=== PATIENT | female | born 1965 | race Caucasian/White ===

== ENCOUNTER 2018-03-08 13:08 | Day surgery (SDC) | payer BC ==
[~2018-03-08] VITALS: Ht 165.1 cm; Wt 84.2 kg
[~2018-03-08 13:08] MED LIST: NITR-58 PO
[2018-03-08 14:15] VITALS: Ht 165.1 cm; Wt 84.2 kg
[2018-03-08 14:30] VITALS: BP 114/66; PULSE 64; RESP 18
--- NOTE | 2018-03-08 15:11 | PREAC ---
Date/Time of Note Date/Time of Note DATE: 03/08/18 TIME: 15:09 Anesthesia Eval and Record Evaluation Time Pre-Procedure Interview DATE: 03/08/18 TIME: 15:09 Age 52 Sex female NPO: 8 hrs Preoperative diagnosis dysphagia / constipation Planned procedure EGD / Colonoscopy- Past Medical History Past Medical History: Includes Pulm: Asthma GI: Obesity Surgery & Anesthesia Issues No known issue Meds Anticoagulation: No Beta Maico within 24 hr: No Reason Beta Maico not given: Pt. not on B-Maico Active Scripts Nitrofurantoin Monohyd Macrocr* (Macrobid*) 100 Mg Capsr, 100 MG PO BID for 5 Days, CAP Prov:JABIER HITCHCOCK [employer]IST [employer] 09/14/15 Reported Medications [None] No Conflict Check 09/11/15 Meds reviewed: Yes Allergies Coded Allergies: No Known Allergy (Unverified , 09/11/15) Allergies Reviewed: Yes Labs/Studies Labs Reviewed: Reviewed by anesthesiologist test: N/A Pre-procedure Exam Last vitals Vital Signs Date Temp Pulse Resp B/P (MAP) Pulse Ox O2 O2 Flow FiO2 Time Delivery Rate 03/08/18 98.1 64 18 114/66 Room Air 14:30 (82) Airway: Adequate mouth opening Mallampati: Mallampati II Teeth: Normal Lung: Normal Heart: Normal ASA Physical Status ASA physical status: 3 Emergency: None Planned Anesthetic General/MAC: MAC Pre-operative Attestations Prior to commencing anesthesia and surgery, the patient was re-evaluated, there was verification of: *The patient's identity *The results of appropriate recent lab work and preoperative vital signs *The above evaluation not changing prior to induction *Anesthetic plan, risk benefits, alternative and complications discussed with patient/family; questions answered; patient/family understands, accepts and wishes to proceed. NATY PALACIOS Mar 08, 2018 15:11
[2018-03-08] MEDS ORDERED: ONDANSETRON 4 MG INJ IV PRN (15:30)
[2018-03-08] MEDS ORDERED: hydrALAzine 20 MG INJ IV PRN (15:30)
[2018-03-08] MEDS ORDERED: LABETALOL HCL 20MG INJ IV PRN (15:30)
[2018-03-08] MEDS ORDERED: METOCLOPRAMIDE 10 MG INJ IV PRN (15:30)
--- NOTE | 2018-03-08 15:32 | PAC ---
Date/Time of Note Date/Time of Note DATE: 03/08/18 TIME: 15:32 Post-Anesthesia Notes Post-Anesthesia Note Last documented vital signs Vital Signs Date Temp Pulse Resp B/P (MAP) Pulse Ox O2 O2 Flow FiO2 Time Delivery Rate 03/08/18 98.1 64 18 114/66 Room Air 14:30 (82) Activity: WNL Respiratory function: WNL Cardiovascular function: WNL Mental status: Baseline Pain reasonably controlled: Yes Hydration appropriate: Yes Nausea/Vomiting absent: Yes NATY PALACIOS Mar 08, 2018 15:32
[2018-03-08 16:00] VITALS: BP 113/63; PULSE 53; RESP 16
== END 2018-03-08 16:45 | disposition home or self-care (01) ==
LOC: GIL 13:08
PROVIDERS: ATTEND Internal Medicine Gastroenterology
DX: Z12.11 Encounter for screening for malignant neoplasm of colon (principal); K64.8 Other hemorrhoids; K29.00 Acute gastritis without bleeding; J45.909 Unspecified asthma, uncomplicated; E66.9 Obesity, unspecified; Z68.30 Body mass index [BMI] 30.0-30.9, adult
CPT/HCPCS: 43239; 45378; 88305; 88312; Z7610

== ENCOUNTER 2018-07-11 05:25 | Inpatient (IN) | payer BC ==
[2018-07-10 10:20] VITALS: BMI 31.6
[~2018-07-11] VITALS: Ht 165.1 cm; Wt 85.1 kg
[2018-07-11] VITALS (18 sets, daily range): BP systolic 90–113; BP diastolic 50–64; PULSE 54–70; RESP 13–19; Ht 165.1 cm; Wt 85.1 kg
--- NOTE | 2018-07-11 05:21 | PREOPHP ---
DATE OF ADMISSION: 07/11/2018 HISTORY OF PRESENT ILLNESS: This is a 53-year-old lady, 5, para 5. Her last normal menstrua l period was in 2016. She was admitted for cystocele and rectocele repair, possible partial vaginect brian. This patient complains of something coming out from the vagina. She is very uncomfortable and having lower abdominal pains and low back pains because of "this course" from the vagina. She is kno wn to have a third degree rectocele and a first degree cystocele. She was given option of having a p essary, but the patient refused. The patient is still sexually active. The procedures were explaine d to the patient and she understood everything totally. The risks, benefits and alternatives were di scussed with her as well. The risks of dyspareunia after this repair were explained to the patient a nd she understood everything totally. PAST PERSONAL HISTORY: No history of TB, asthma. ALLERGIES: NO ALLERGIES. SOCIAL HISTORY: The patient does not smoke. She does not drink. MEDICATIONS: She does not take any drugs. PAST SURGICAL HISTORY: She had a vaginal hysterectomy in 2015. FAMILY HISTORY: There is a family history of diabetes. GYNECOLOGIC HISTORY: She had menarche at the age of 17, every 28 days interval, 3 to 4 days duration and moderate in amount. OBSTETRIC HISTORY: She is 5, para 5 with 5 normal deliveries. REVIEW OF SYSTEMS: CARDIOVASCULAR: No chest pains. RESPIRATORY: No cough. GASTROINTESTINAL: No diarrhea. No vomiting. GENITOURINARY: No dysuria. PHYSICAL EXAMINATION: GENERAL: Reveals a conscious, coherent lady and in no acute distress. VITAL SIGNS: Blood pressure 120/80, pulse rate 80 per minute, respirations 16 per minute. BREASTS, HEART AND LUNGS: Within normal limits. ABDOMEN: Soft and obese. PELVIC: Revealed third degree cystocele and first degree rectocele. Adnexa were negative for masses . RECTAL: Confirmed the pelvic findings. EXTREMITIES: No pedal edema. ADMITTING DIAGNOSES: 1. Third-degree cystocele. 2. First degree rectocele. 3. Menopause. As mentioned, the patient has refused to have the pessary inserted. She wanted to go for the surgery . The procedures were explained as mentioned to her the risks, benefits and alternatives explained t o her. Dictated By: HESHAM YU/ABELINO Conf#: [id number] DID#: [id number]
[2018-07-11] MEDS ORDERED: ACETAMINOPHEN 500 MG TAB PO ONE (06:00)
[2018-07-11] MEDS ORDERED: VASOPRESSIN 20 UNITS INJ ONE (06:46)
[2018-07-11] MEDS ORDERED: LACTATED RINGER'S 1,000 ML IV SCH (06:50)
[2018-07-11] MEDS ORDERED: LIDOCAINE 2% (SDV) 5 ML INJ ONE (06:54)
[2018-07-11] MEDS ORDERED: FENTAnyl 50 MCG/ML VIAL ONE (06:54)
[2018-07-11] MEDS ORDERED: PROPOFOL 40 ML ONE (06:54)
[2018-07-11] MEDS ORDERED: CEFAZOLIN 1 GM INJ ONE (06:54)
[2018-07-11] MEDS ORDERED: FAMOTIDINE 20 MG INJ ONE (06:55)
[2018-07-11] MEDS ORDERED: ONDANSETRON 4 MG INJ ONE (06:55)
[2018-07-11] MEDS ORDERED: DESFLURANE 15 MIN ONE (07:00)
--- NOTE | 2018-07-11 07:05 | PREAC ---
Date/Time of Note Date/Time of Note DATE: 07/11/18 TIME: 07:03 Anesthesia Eval and Record Evaluation Time Pre-Procedure Interview DATE: 07/11/18 TIME: 07:03 Age 53 Sex female NPO: 8 hrs Preoperative diagnosis cystocele, rectocele Planned procedure cystocele and rectocele repair Past Medical History Past Medical History: Includes (allergic rhinitis) GI: Obesity Surgery & Anesthesia Issues No known issue Meds Anticoagulation: No Beta Maico within 24 hr: No Reason Beta Maico not given: Pt. not on B-Maico Discontinued Reported Medications [None] No Conflict Check 09/11/15 Discontinued Scripts Nitrofurantoin Monohyd Macrocr* (Macrobid*) 100 Mg Capsr, 100 MG PO BID for 5 Days, CAP Prov:JABIER HITCHCOCK [employer] REP 09/14/15 Current Medications Lactated Ringer's 1,000 ml @ 0 mls/hr Q0M IV Last administered on 07/11/18at 06:54; Admin Dose 20 MLS/HR; Start 07/11/18 at 06:50 Meds reviewed: Yes Allergies Coded Allergies: No Known Allergy (Unverified , 07/11/18) Allergies Reviewed: Yes Labs/Studies Labs Reviewed: Reviewed by anesthesiologist Blood Bank Test 07/10/18 10:06 Antibody Screen NEGATIVE Blood Type O POSITIVE test: N/A (pt had hysterectomy) Pre-procedure Exam Last vitals Vital Signs Date Temp Pulse Resp B/P (MAP) Pulse Ox O2 O2 Flow FiO2 Time Delivery Rate 07/11/18 97.5 58 18 96/60 (72) 98 Room Air 06:39 Airway: Adequate mouth opening, Adequate thyromental dist Mallampati: Mallampati II Teeth: Normal Lung: Normal Heart: Normal ASA Physical Status ASA physical status: 2 Emergency: None Planned Anesthetic General/MAC: LMA Pre-operative Attestations Prior to commencing anesthesia and surgery, the patient was re-evaluated, there was verification of: *The patient's identity *The results of appropriate recent lab work and preoperative vital signs *The above evaluation not changing prior to induction *Anesthetic plan, risk benefits, alternative and complications discussed with patient/family; questions answered; patient/family understands, accepts and wishes to proceed. [employer] Processor used WILLIAMS PATE Jul 11, 2018 07:04
[2018-07-11] MEDS ORDERED: ROCURONIUM 50 MG INJ ONE (07:24)
[2018-07-11] MEDS ORDERED: MIDAZOLAM 1 MG/ML 2 ML INJ ONE (07:25)
[2018-07-11] MEDS ORDERED: DIPHENHYDRAMINE 50 MG INJ IV PRN (07:30)
[2018-07-11] MEDS ORDERED: HYDROmorphONE 1 MG/5 ML IV SYRINGE IV PRN ×3 (07:30)
[2018-07-11] MEDS ORDERED: LABETALOL HCL 20MG INJ IV PRN (07:30)
[2018-07-11] MEDS ORDERED: OXYCODONE/ACETAMINOPHEN (5/325) TAB PO PRN ×2 (07:30)
[2018-07-11] MEDS ORDERED: ONDANSETRON 4 MG INJ IV PRN ×2 (07:30→12:00)
[2018-07-11] MEDS ORDERED: morphine 2 MG INJ IV PRN ×2 (07:30)
[2018-07-11] MEDS ORDERED: FENTAnyl 50 MCG/ML VIAL IV PRN ×2 (07:30)
[2018-07-11] MEDS ORDERED: MEPERIDINE 25 MG INJ IV PRN (07:30)
[2018-07-11] MEDS ORDERED: ALBUTEROL 0.083% (NEB) 2.5 MG/3 ML AMP HHN PRN (07:30)
[2018-07-11] MEDS ORDERED: DEXAMETHASONE 4 MG/ML 5 ML INJ ONE (07:55)
[2018-07-11] MEDS ORDERED: EPHEDrine 25 MG/5 ML SYG ONE (08:05)
[2018-07-11] MEDS ORDERED: NEOSTIGMINE 3 MG/3 ML SYRINGE ONE (08:50)
[2018-07-11] MEDS ORDERED: GLYCOPYRROLATE 0.4 MG INJ ONE (08:50)
[2018-07-11] MEDS ORDERED: KETOROLAC 30 MG INJ ONE (09:08)
--- NOTE | 2018-07-11 09:17 | SIPON ---
Date/Time of Note Date/Time of Note DATE: 07/11/18 TIME: 09:16 Operative Report Preoperative Diagnosis 1ST DEGREE CYSTOCELE 3RD DEGRESS RECTOCELE Postoperative Diagnosis 1ST DEGREE CYSTOCELE 3RD DEGRESS RECTOCELE Operation/Procedure Performed A&P REPEAIR Surgeon see signature line nurse practitioner physicians assistant DR KRISTINA SANCHEZ Anesthesia: general Estimated blood loss: 50 - 100 ml's Transfusion Required none Specimen VAGINAL MUCOSA Grafts/Implants none Complications none HESHAM HECK MD Jul 11, 2018 09:17
--- NOTE | 2018-07-11 09:39 | PAC ---
Date/Time of Note Date/Time of Note DATE: 07/11/18 TIME: 09:39 Post-Anesthesia Notes Post-Anesthesia Note Last documented vital signs Vital Signs Date Temp Pulse Resp B/P (MAP) Pulse Ox O2 O2 Flow FiO2 Time Delivery Rate 07/11/18 99.2 65 17 110/60 98 Mask 6.0 09:19 (77) Activity: WNL Respiratory function: WNL Cardiovascular function: WNL Mental status: Baseline Pain reasonably controlled: Yes Hydration appropriate: Yes Nausea/Vomiting absent: Yes WILLIAMS PATE Jul 11, 2018 09:39
[2018-07-11] MEDS: LACTATED RINGER'S 1,000 ML IV SCH ×3 (09:43→22:02)
[2018-07-11] MEDS ORDERED: HYDROmorphONE 0.2 MG/ML PCA IV SCH (10:30)
--- NOTE | 2018-07-11 14:15 | OPR ---
DATE OF OPERATION: 07/11/2018 PREOPERATIVE DIAGNOSES: 1. First degree cystocele. 2. Third degree rectocele. POSTOPERATIVE DIAGNOSES: 1. First degree cystocele. 2. Third degree rectocele. SURGEON: Hesham Alvarado MD TIRE FABRIC INSPECTOR: Romaine Ruiz MD ANESTHESIA: General. ANESTHESIOLOGIST: Lindsay Schafer NP OPERATION PERFORMED: Anterior cystocele repair and rectocele repair. OPERATIVE TECHNIQUE: Under general anesthesia, the patient was prepped and draped in the usual fashi on for vaginal surgery. Pelvic exam under anesthesia revealed third degree rectocele and first degre e cystocele was noted. No masses on the pelvic region felt. Then the Vargas catheter was inserted an d then after draining the bladder, the Vargas catheter was clamped. Then, anterior repair was started . Two Allis clamps were placed on the left and right side of the vaginal mucosa, then an incision wa s performed transversely on the anterior vaginal mucosa then with the aid of Allis clamps and Kellys, the vaginal mucosa was from the bladder by sharp and blunt dissection. About 1 inch of th e bladder mucosa was from the bladder mucosa. Thick adhesions were noted at the anterior v aginal mucosa after the separation then 3 Gill plication sutures were put in, then 2-0 Vicryl was us ed. Then the vaginal mucosa was excised and then the anterior vaginal mucosa was sutured with interr upted suture with 2-0 Vicryl. About 7 sutures were put on the anterior vaginal mucosa with 2-0 Vicry l. Then, the Vargas catheter was opened and clear urine was noted. Then the posterior repair was pro ceeded. Two Allis clamps were placed at angle of the vaginal mucosa on the left and right side. The n, a triangular incision was placed at the perineum and cutting the vaginal mucosa. Then, the peanut picker ior vaginal mucosa was from the rectum by sharp and blunt dissection using Kellys for tract ion of the posterior vaginal mucosa. Then, the posterior vaginal mucosa was from the rectu m by sharp and blunt dissection. About 4 inches of vaginal mucosa was from the rectum. Th en the rectal mucosa was pushed down by using Gill plication suture. About 5 Gill plication suture s were put in. This is to bury the vaginal mucosa. Then the muscle of the perineum was sutured with 2 interrupted sutures with 0 Vicryl. Then, the vaginal mucosa was trimmed. About 3 inches of vagin al mucosa was trimmed. Then the posterior vaginal mucosa was sutured with interrupted suture with 2- 0 Vicryl. About 20 of these sutures were put in. Then, the bleeders were checked and there was some oozing noted on the distal end of the vaginal mucosa and 2 [id number] sutures were put in and t he bleeding was controlled. The rectum was checked for any sutures put in the rectum and there was n one noted. This was done while putting the Gill plication suture. The vaginal mucosa was double ch ecked again anterior and posterior to check for any bleeders and there was no bleeding noted. After correct sponge count, the vaginal packing was left inside the vaginal mucosa for pressure. The patie nt tolerated the procedure well. Estimated blood loss was about 50 mL. Vital signs were stable duri ng and after the procedure. Dictated By: HESHAM YU/ABELINO Conf#: [id number] DID#: [id number]
[2018-07-12 00:15] VITALS: BP 98/56; PULSE 55; RESP 19
[2018-07-12] MEDS: LACTATED RINGER'S 1,000 ML IV SCH (05:16)
[2018-07-12] MEDS ORDERED: BISACODYL 10 MG SUPP PR ONE ×2 (06:00→17:00)
[2018-07-12] MEDS ORDERED: MAGNESIUM HYDROXIDE 30ML CUP PO ONE ×2 (06:00→17:00)
[2018-07-12 08:04] VITALS: BP 103/62; PULSE 52; RESP 16
[2018-07-12] MEDS ORDERED: HYDROCODONE/APAP (5/325) TAB PO PRN ×2 (09:30)
[2018-07-12] MEDS ORDERED: IBUPROFEN 800 MG TAB PO PRN (09:30)
[2018-07-12 13:49] VITALS: BP 111/61; PULSE 58; RESP 17
--- NOTE | 2018-07-16 17:05 | DS ---
DATE OF ADMISSION: 07/11/2018 DATE OF DISCHARGE: 07/12/2018 This is a 53-year-old lady, 5, para 5. She was admitted for cystocele and rectocele repair, possible partial vaginectomy. HISTORY OF PRESENT ILLNESS: See dictated history and physical. PHYSICAL EXAMINATION: See dictated history and physical. ADMITTING DIAGNOSES 1. Third-degree cystocele. 2. First-degree rectocele. The patient underwent an anterior and posterior repair and partial vaginectomy on 07/11/2018. She to lerated the procedure well. She did have good postoperative course. The diet was advanced from liqu id to general diet. She had good urine output the following day after the surgery when the Vargas was taken out. She felt well and wanted to go home. The following day after surgery, she went home on general diet and activity was restricted. She was counseled. She was instructed. She was given pre scription for pain and for prophylactic antibiotic, Macrobid. She was discharged home in good and st able condition on general diet and activity was restricted. FINAL DIAGNOSES: 1. Cystocele. 2. Rectocele. 3. Partial vaginal prolapse. Dictated By: HESHAM HECK MD NS/NTS Conf#: [id number] DID#: [id number] CC: HESHAM HECK MD;*[facility]*
--- NOTE | 2018-07-16 18:45 | PN ---
DATE: 07/12/2018 SUBJECTIVE: The patient has good urine output. She had a good bowel movement. The patient feels go od. Minimal lower abdominal pain. OBJECTIVE VITAL SIGNS: She is afebrile. Vital signs stable. HEART: Normal sinus rhythm. LUNGS: Clear. ABDOMEN: Soft. Bowel sounds are good. GENITOURINARY: Vaginal packing removed. No vaginal bleeding noted. EXTREMITIES: No calf tenderness. ASSESSMENT: Postop day 1. PLAN: The Vargas is going to be discharged and to be observed for her urine output. She will be loren g home today after dinner. Advance diet as tolerated. She was counseled. She was instructed. She was given prescription for pain. She will be discharged today with good urine output and with good m ovement. She will return to the clinic in 1 week. She was told to continue to take her iron and giv en prescription for prophylactic antibiotics for the anterior repair. Dictated By: HESHAM YU/ABELINO Conf#: [id number] DID#: [id number]
== END 2018-07-12 18:29 | disposition home or self-care (01) | DRG 748 ==
LOC: SDS 05:25 → REC 09:18 → SDS 09:18 → MS1 10:11
PROVIDERS: ADMIT Obstetrics & Gynecology; ATTEND Obstetrics & Gynecology
PROC: 0JQC0ZZ Repair Pelvic Region Subcutaneous Tissue and Fascia, Open Approach (ICD-10-PCS; 2018-07-11)
PROC: 0JQC0ZZ Repair Pelvic Region Subcutaneous Tissue and Fascia, Open Approach (ICD-10-PCS; principal; 2018-07-11 07:30)
DX: N81.10 Cystocele, unspecified (principal); N81.6 Rectocele; Z78.0 Asymptomatic menopausal state
CPT/HCPCS: 80053; 84703; 85025; 86850; 86900; 86901; 87086; 88305; J0690; J1100; J1170; J1885; J2250; J2405; J2710; J3010; J7120